=== PATIENT | male | born 1950 | race Caucasian/White ===

== ENCOUNTER → 2023-07-17 07:47 | Outpatient (REF) | payer OTHER, SELFPAY | LOC: RAD 07:47 | PROVIDERS: ATTENDING PHYSICIAN Surgery Vascular Surgery; FAMILY PHYSICIAN Internal Medicine | DX: I73.9 Peripheral vascular disease, unspecified (principal) | CPT/HCPCS: 93922; 93925 ==

== ENCOUNTER → 2024-07-28 12:44 | Outpatient (REF) | payer OTHER, SELFPAY | LOC: RAD 12:44 | PROVIDERS: ATTENDING PHYSICIAN Registered Nurse | DX: I73.9 Peripheral vascular disease, unspecified (principal); I65.23 Occlusion and stenosis of bilateral carotid arteries | CPT/HCPCS: 93880; 93922; 93925 ==